=== PATIENT | male | born 1965 | race Caucasian/White ===

== ENCOUNTER → 2019-10-24 15:29 | Outpatient (CLI) | payer OTHER, MEDICAID, SELFPAY ==
--- NOTE | 2019-10-24 15:32 | DI.RAD.S_ITS ---
PROCEDURE: XR SHOULDER RT MIN 2V INDICATIONS: shoulder impingment TECHNIQUE: 3 views of the shoulder were acquired. COMPARISON: None. FINDINGS: Bones: No fractures or dislocations. No suspicious bony lesions. Visualized ribs appear intact. Soft tissues: No suspicious soft tissue calcifications. 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 No effusion or loose body seen. Dictated by: Blaine Arango M.D. on 10/24/2019 at 15:50 Approved by: Blaine Arango M.D. on 10/24/2019 at 15:51
== END ==
PROVIDERS: PCP Physician Assistant; Visit Provider Registered Nurse
DX: M75.41 Impingement syndrome of right shoulder (principal); M19.011 Primary osteoarthritis, right shoulder
CPT/HCPCS: 73030

== ENCOUNTER → 2022-11-04 14:13 | Outpatient (CLI) | payer OTHER, MEDICAID, SELFPAY ==
[2022-11-04 14:47] LABS: COVID19 -Nasal RAPID Negative (Negative)
== END ==
PROVIDERS: PCP Physician Assistant; Referring Provider Orthopaedic Surgery; Visit Provider Orthopaedic Surgery
DX: Z20.822 Contact with and (suspected) exposure to COVID-19 (principal)
CPT/HCPCS: 87635; C9803

== ENCOUNTER 2022-11-05 08:22 | Day surgery (SDC) | payer OTHER, MEDICAID, SELFPAY ==
[2022-10-30 12:48] VITALS: BMI 45.8
[2022-11-05] VITALS (10 sets, daily range): BP systolic 120–153; BP diastolic 59–85; PULSE 55–79; RESP 12–22; TEMP 36.1–36.3; O2SAT 93–96; BMI 45.8
[2022-11-05] MEDS: LACTATED RINGERS 1,000 ML 84 ML IV (08:38)
--- NOTE | 2022-11-05 09:35 | PM.PREOP ---
Pre-operative Note COVID-19 COVID-19 status: Negative Result date/Date tested (Pos, Neg/Pending): 11/04/22 Interval Note History & Physical reviewed/Exam performed by Physician: Yes Changes to H&P: No
--- NOTE | 2022-11-05 10:27 | SUR.PREOP ---
Block start time [0955] . Monitoring initiated and maintained throughout procedure. Oxygen and medications given per anesthesiologist. Patient remained stable throughout procedure, no adverse reactions noted. Block end time [1010 ].
[2022-11-05] MEDS: CEFAZOLIN 2 GM/100 ML PREMIX 100 ML IV (10:35)
--- NOTE | 2022-11-05 10:54 | SUR.OPER ---
Lateral on padded OR bed with sawyer bag positioner, head on pillow, gel axillary roll in place, bottom leg bent with gel pad under knee to foot, upper leg straight and supported with pillows. Operative arm secured in shoulder positioning suspension device. non-operative arm secured on padded arm board. Safety belt at hip, tape over blanket securing lower legs.
[2022-11-05] MEDS: BUPIVACAINE 0.5% W/ EPI (PF) 30 ML VIAL INJ (11:03)
[2022-11-05] MEDS: EPINEPHrine 1 MG/10 ML SYRINGE INJ (11:09)
--- NOTE | 2022-11-05 11:31 | PM.OP.1 ---
Operative Date/Time/Diagnoses Date of procedure: 11/05/22 Time of procedure: 11:31 Pre-op diagnosis: 1. Rotator cuff tear, right shoulder 2. Biceps tendinitis, right shoulder Post-op diagnosis: other (Same but biceps was ruptured.) Procedure & Clinicians Procedure: 1. Arthroscopic rotator cuff repair, right shoulder 2. Arthroscopic subacromial decompression, right shoulder Same procedure as scheduled: No (There was no need for biceps tenodesis.) Indications: The patient is a 57-year-old gentleman who has had right shoulder pain that has not responded to non operative measures. His MRI appears to show a rotator cuff tear. He has also thought to have biceps tendinitis based on his exam. After discussion the risks benefits and alternatives, he is agreed to proceed with surgery. Risks discussed included but were not limited to: Failure to improve, stiffness, infection, nerve damage, deep venous thrombosis, pulmonary embolism, stroke, myocardial infarction, permanent paralysis and . Surgeon: José Miguel Cuevas Full Decator Operator: Rosemarie Montes De Oca Yes if Unassisted: No Anesthesia Type: General, Peripheral nerve block and Local Operative Notes Findings: 1. Normal glenohumeral cartilage 2. Normal glenohumeral labrum with mild degenerative fraying 3. Normal glenohumeral ligaments 4. Intact subscapularis 5. Complete rupture of the biceps with no residual tendon in the joint 6. Tearing of the supraspinatus about a cm behind the bicipital groove. This was approximately a 1 cm tear on the bursal surface and there were small residual pieces of capsule in the joint but the fenestrations showed a full-thickness tear. 7. Intact infraspinatus 8. Normal axillary pouch 9. Bursal surface tearing as noted above in the description of the supraspinatus tear 10. Type 3 acromion with traction spur which was converted to a type 1 acromion using the cutting block technique 11. Acromioclavicular joint not visualized due to lack of preoperative symptoms 12. Examination under anesthesia notable for full range of motion and no evidence for pathologic laxity. Closure Type: primary Specimen(s): none sent Prosthetic devices, grafts, tissues, transplants, or devices: One Arthrex triple threaded rotator cuff anchor, bioabsorbable Applied: implant(s) Estimated Blood Loss (mL): 10 Blood products transfused: none Procedure in detail: The patient was seen in the preoperative area where he identified his right shoulder as the operative site and this was marked with my initials. He was taken to the operating room after undergoing an interscalene block and placed on the operating room table in a supine position where he underwent a general anesthetic. Shoulder was then examined under anesthesia. Was repositioned in the left lateral decubitus position with an axillary roll and padding for all pressure points. He was stabilized in this position using the sawyer bag and adhesive tape. A multimedia authoring specialist-out was performed. His right arm was prepared from the fingertips to the base of the neck with ChloraPrep in the usual fashion draped through sterile drapes. The arm was placed in 15 lb of balanced skin suspension with 10 lb distally in 5 lb lateral pull. The subcutaneous landmarks were outlined on the skin with a marking pen and portal sites selected. The posterior portal was created for the arthroscope and diagnostic arthroscopy ensued with the result given above. A percutaneous marking suture was placed at the site of the rotator cuff tear while intra-articular. The arthroscope was then withdrawn and placed in the subacromial bursa through the posterior portal. The suture was identified. This allowed easy identification of the tear. A bursectomy was performed for visualization. There was a prominent traction spur on the acromion with an impingement lesion, so this was converted to a type 1 acromion using the cutting block technique with a 6 mm bur. The greater tuberosity was prepared to bleeding bone with a bur. An accessory superolateral portal was created and an anchor placed in the center of the exposed greater tuberosity. An anterior portal was created for suture management. The 3 sutures in the anchor were then passed with a suture Passer in simple suture fashion to repair the tear. These were then tied with a sliding knot in 3 alternating half hitches to complete the repair. The integrity of the repair was confirmed viewing from the posterior portal and the lateral portal. At this point all arthroscopic equipment was removed. The wounds were closed with 4-0 Monocryl and Steri-Strips. 0.25% Marcaine was injected in the subacromial space and the subcutaneous tissues for a total of 20 mL of Marcaine for postoperative pain control. Dressings of sterile 4x4s, an ABD and adhesive dressing were applied followed by a sling. The patient was then transferred to the recovery room having tolerated the procedure well. The services of a skilled licensed physical therapy assistant were required during this procedure for camera work and to assist with positioning the arm and holding the camera while my hands were occupied with suture tying and preparation of bone. Without a skilled licensed physical therapy assistant this procedure could not have been performed safely expediently. Complications: none Post-operative Condition: stable Disposition: PACU Plan for aftercare: The patient will be discharged to home today. He will be maintained on a standard small size rotator cuff tear protocol. He will remain in the sling for 6 weeks.
[2022-11-05] MEDS: OXYCODONE IR 5 MG TABLET PO (13:08)
== END 2022-11-05 13:28 | disposition home or self-care (01) ==
PROVIDERS: PCP Physician Assistant; Referring Provider Student in an Organized Health Care Education/Training Program; Visit Provider Orthopaedic Surgery
PROC: (CPT 29827; principal; 2022-11-05 10:00)
DX: M75.121 Complete rotator cuff tear or rupture of right shoulder, not specified as traumatic (principal); M75.21 Bicipital tendinitis, right shoulder; S46.211A Strain of muscle, fascia and tendon of other parts of biceps, right arm, initial encounter; G89.18 Other acute postprocedural pain; I10 Essential (primary) hypertension
CPT/HCPCS: 29827; 29826; 64450; J0171; J0690; J1100; J1885; J2250; J2405; J2704; J3010